=== PATIENT | female | born 2000 | race Caucasian/White ===

== ENCOUNTER 2022-02-07 18:28 | Emergency (ER) | payer MEDICAID, SELFPAY ==
[2022-02-07 18:30] VITALS: BP 130/88; PULSE 99; RESP 14; TEMP 37.1; O2SAT 96; BMI 28.6
--- NOTE | 2022-02-07 19:11 | EDS_ITS ---
HPI HPI - Psych History of Present Illness Chief Complaint: Suicidal Narrative Narrative: 21-year-old female college in [place] patient stating that she has feelings of suicidal ideation for about 6 months. She has been seen talking to somebody on the phone who is a therapist. She is on Zoloft which was increased 2 weeks ago. She states is not helping. She recently returned back to school campus and she states she does not have many friends. She states I do not have many people. She states that even when she goes home with her mom her mom suffers from depression as well and has no support structure. She initially stated that she had no plan for suicide but does admit to social work that she has been researching things on her phone on how to overdose with Zoloft and no sort of things. He states there is no history of attempts. PFSH PFSH Home Medications Prozac 40 mg DAILY 02/07/22 [History Last Taken Unknown] Vistaril 10 mg DAILY PRN PRN 02/07/22 [History Last Taken Unknown] drospirenone-ethinyl estradiol [SLIM (28)] 1 tab PO DAILY 02/07/22 [History Last Taken Unknown] spironolactone [Aldactone] 25 mg PO DAILY 02/07/22 [History Last Taken Unknown] Allergy/AdvReac Type Severity Reaction Status Date / Time No Known Allergies Allergy Verified 02/07/22 18:30 Social History Smoking Status: Never smoker ROS ROS ED Constitutional Constitutional ED: Denies chills or fever(s) Eyes Eyes: Denies blurry vision ENT ENT ED: Denies ear pain or sore throat Cardiovascular Cardiovascular: Denies chest pain, palpitations or racing heartbeat Respiratory/Chest Respiratory/Chest: Denies cough, dyspnea or sputum Gastrointestinal Gastrointestinal: Denies abdominal pain, constipation, diarrhea, nausea or vomiting Genitourinary Genitourinary ED: Denies dysuria, hematuria or urinary frequency Musculoskeletal Musculoskeletal: Denies arthralgias, myalgias or neck pain Integumentary Denies abscess, Abrasions or rash Neurologic Neurologic: Denies headache(s), paresthesias or weakness Psychiatric Psychiatric: Reports anxiety, depression, suicidal ideation and suicidal thoughts Endocrine Endocrinology: Denies polydipsia or polyuria EXAM Physical Exam Const Vital Signs: 02/07/22 18:30 02/07/22 19:40 02/07/22 22:54 Temperature 98.8 F 98.1 F Temperature Source Temporal Temporal Pulse Rate 99 78 Respiratory Rate 14 17 17 Blood Pressure 130/88 H Blood Pressure Mean 102 Pulse Ox 96 98 Oxygen Delivery Method Room Air Room Air 02/07/22 23:31 Temperature Temperature Source Pulse Rate Respiratory Rate 16 Blood Pressure Blood Pressure Mean Pulse Ox Oxygen Delivery Method General Appearance ED: Negative for pallor HEENT Reports normocephalic, head/scalp atraumatic and moist mucous membranes Eyes PERRL and EOMs intact bilaterally Neck no lymphadenopathy and supple Chest Wall inspection of chest normal and palpation of chest normal Resp normal respiratory effort and clear to auscultation bilaterally Auscultation: Negative for rales, rhonchi or wheezes Cardio regular rate and regular rhythm GI normal to inspection, nondistended, normoactive bowel sounds and non-distended Auscultation: normoactive bowel sounds Palpation: soft Narrative: Deferred Extremity normal to inspection General Extremety ED: Yes edema and tenderness General Extremity: edema Neuro oriented x3 and CN's II-XII intact bilaterally Sensorium / Orientation: alert Motor Exam: strength 5/5 throughout Psych speech normal Attitude: calm and No agitated Speech: normal speech Mood & Affect: flat affect Thought Process: No circumstantial and No confused Thought Content: suicidality and No homicidality Skin no rashes or lesions noted and no wounds General Skin Exam: Negative for jaundice or pallor MDM MDM MDM Narrative Medical decision making narrative: Patient initially assessed by social work here. This was handed off to crisis. CBC unremarkable. EtOH negative. Renal function electrolytes are normal. Urine drug screen negative. Covid testing negative. EKG on my interpretation shows normal sinus rhythm with ventricular rate of 79 bpm without sign ischemic change or dysrhythmia. Patient medically cleared to speak with crisis. Both I and social work believe the patient is appropriate for inpatient psychiatric care due to researching ways to overdose on her home medications. Patient also reports that if she is discharged home she would not be safe. Impression: 1. Suicidal ideation with plan Lab Data Attestation: I reviewed the patient's lab results. Labs: Laboratory Results - last 24 hr 02/07/22 02/07/22 02/07/22 20:00 20:35 20:35 WBC 11.2 H RBC 5.16 Hgb 14.3 Hct 45.5 MCV 88.2 MCH 27.7 MCHC 31.4 L RDW Std Deviation 42.6 RDW Coeff of Jeff 13.1 Plt Count 267 MPV 10.5 Immature Gran % (Auto) 0.400 Neut % (Auto) 65.1 Lymph % (Auto) 23.8 Gilliam % (Auto) 6.9 Eos % (Auto) 3.1 Baso % (Auto) 0.7 Absolute Neuts (auto) 7.3 Absolute Lymphs (auto) 2.65 Nucleated RBC % 0 Sodium Potassium Chloride Carbon Dioxide Anion Gap BUN Creatinine Estim Creat Clear Calc Est GFR (MDRD) Af Amer Est GFR (MDRD) Non-Af BUN/Creatinine Ratio Glucose Calcium Serum , Qual Urine Opiates Screen NEGATIVE Urine Methadone Screen NEGATIVE Ur Barbiturates Screen NEGATIVE Ur Phencyclidine Scrn NEGATIVE Ur Amphetamines Screen NEGATIVE MDMA (Ecstasy) Screen NEGATIVE U Benzodiazepines Scrn NEGATIVE Urine Cocaine Screen NEGATIVE U Cannabinoids Screen NEGATIVE Ur Drug Screen Comment Ethyl Alcohol < 3.0 02/07/22 02/07/22 23:24 23:24 WBC RBC Hgb Hct MCV MCH MCHC RDW Std Deviation RDW Coeff of Jeff Plt Count MPV Immature Gran % (Auto) Neut % (Auto) Lymph % (Auto) Gilliam % (Auto) Eos % (Auto) Baso % (Auto) Absolute Neuts (auto) Absolute Lymphs (auto) Nucleated RBC % Sodium 139 Potassium 3.9 Chloride 106 Carbon Dioxide 24.0 Anion Gap 9 BUN 12 Creatinine 0.73 Estim Creat Clear Calc 111.54 Est GFR (MDRD) Af Amer 132 Est GFR (MDRD) Non-Af 109 BUN/Creatinine Ratio 16.5 Glucose 87 Calcium 9.0 Serum , Qual NEGATIVE Urine Opiates Screen Urine Methadone Screen Ur Barbiturates Screen Ur Phencyclidine Scrn Ur Amphetamines Screen MDMA (Ecstasy) Screen U Benzodiazepines Scrn Urine Cocaine Screen U Cannabinoids Screen Ur Drug Screen Comment Ethyl Alcohol Discharge Plan Triage Chief Complaint: Suicidal ED Provider: Monty Prieto Dx/Rx/DC Orders Prescriptions: No Action Prozac 40 mg DAILY RF: 0 Vistaril 10 mg DAILY PRN PRN (Reason: Anxiety) RF: 0 spironolactone [Aldactone] 25 mg Tablet 25 mg PO DAILY RF: 0 drospirenone-ethinyl estradiol [SLIM (28)] 3-0.02 mg Tablet 1 tab PO DAILY RF: 0
[2022-02-07 19:40] VITALS: PULSE 78; RESP 17; TEMP 36.7; O2SAT 98
--- NOTE | 2022-02-07 20:19 | CM.ED ---
LEON Psychiatric Assessment Reason for Consult: Suicidal Informant: Patient and Jesi, therapist from [facility] Chief Complaint: Patient reports that today is ?the first day back from spring and I am already not doing well?. Patient said that she has not been doing well for the past 2-3 weeks. Patient said that she has ?felt numb and nothing is motivating or exciting?. Patient said that she is collaborating with a psychiatrist but stated she felt the meds were working ?but there is still stuff going on.? SW asked patient to elaborate what the ?stuff that is going on is? and patient said, ?I have always had problems socially... but in high school I was confident and had a purpose and now at [facility] I realize how different I am.? SW asked how patient is different and she said, ?everyone else is happy and having fun? and stated, ?they come for affluent families, but I only have a mom and she is not supportive?. Patient said that she has felt depressed for the last year but came to the hospital today as ?I just knew I needed help? I get irritated and agitated?. LEON spoke to Jesi from [facility]. Jesi said that patient called the National Suicide Hotline ?several times? today. Jesi said that patient stated that she is more suicidal than previous days but was very ?vague?. Patient said that she is scared she would hurt herself and could do something impulsively. Jesi said that patient is scared if her mom finds out she needs inpatient psych and that her mom could be so upset that she might ?take her own life?. Marital /Social History: Single Identified Gender/Sexual Orientation: Female/Bisexual- She/Her Pronouns Living Situation: Patient resides in [facility]. Patient said that she has a roommate but ?we don?t talk?. Support/Resources: Patient reports she has a twin brother who also attends the [facility], and he is a support. Patient said that her mom is ?tameka a support but not about mental health... she would get angry or threaten me with outpatient. She would be worried, but it comes out as anger?. History: None Education and Employment History: Patient graduated [employer] in [place]. No learning issues. 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. Patient said that her grades are ?pretty good? and that she has ?decent grades but I am doing less work on them? and then stated that it is hard to focus and concentrate. Mental Health Treatment: Patient reports she has a psychiatrist through the [facility] who she has seen two times on Telehealth. Patient has seen the psychiatrist twice monthly and her next appointment is in a couple of months. Patient reports she is on Vistaril (PRN) and Prozac. Patient sees a therapist through teletherapy services through [facility]. Patient has tried to see her therapist weekly by but has not for the last 2-3 weeks. Patient said that she is diagnosed with generalized anxiety disorder. Patient said that her therapist and her PCP feel that she has more ?social anxiety and depression?, but it is not documented. Patient reports in 2017 she attended an PHP/IOP program called the [facility] in [place] for Eating disorder. 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 No inpatient psych hospitalizations. Patient previously was seeing a therapist at [facility] [place]. Patient met with Jesi from the [facility] today. Triggers/Stressors: Patient said that in the past 3-4 months she has talked to people romantically, but they all broke up with her so that adds stress. Patient said that initially when she came back from, winter break she noted that she was isolating herself a feeling ?really angry and frustrated?. Patient said that loud noises ?make me sad?. Patient said that another trigger is ?not having too much support. I have friends but not close friends?. Patient said that she wanted to get close to her aunt, who lives next door to patient?s mom, but did not reach out to her aunt as she thought her mom may get mad. Coping Skills: Patient said that her coping skills are ?trying not to think about it ?and ?distracting myself?. Patient said that in the past she had done journaling, reading and listening to music but ?I don?t do that as much?. Abuse Issues: Patient was asked about abuse and patient said, ?I don?t know?. Patient said, ?I don?t feel safe at home?. Patient said that her mom has not hit her ?but I don?t feel safe... my mom gets angry and shouts and leaves the house for hours?. Patient said that there has not been any CPS involvement. Substance abuse Issues: Denied Risk to Self and Others: Suicidal: Thoughts: Patient reports she has suicidal thought and they have gotten worse ?the last couple of weeks?. Patient said that the thoughts were ?worse today then yesterday?. Patient said that she is also ?tired? and when asked about that patient said that she is tired ?of the ways things are ... I never felt I had people?. Patient reports she feels hopeless and helpless. SW asked patient if she has anything she looks forward to in the future and patient said, ?I look forward to grad school and having a family and the future but getting through this now?? the next couple of weeks is hard?. Plans: Patient initially denied a plan. However, when asked if she researched ways to harm herself patient said that she had researched methods online today. Patient said that she looked up how to harm herself with pills and then voiced she had looked up how to harm herself with her Prozac. Patient said ?I want a way to have this all stop? I need a drastic change?. Patient said that when she researched online how to complete suicide using pills it referred her to the suicide hotline. Attempts: None Homicidal: Thoughts: Denied Plans: Denied Attempts: Denied Violence: To Self: Denied To Others: Denied Objects: Denied Orientation: x3 Memory: Intact Appearance/General Behavior: Clean hygiene. Appears to be anxious with continual movement throughout the assessment. Wearing hospital Gown. Poor eye contact Mood/Affect: Depressed mood and affect Communication Pattern: Responds to Questions Thought Process: Logical and Linear General Intellectual Functioning: Judgment: Fair Insight: Fair LEON met with MD Prieto who agrees with plan for psych hospitalization for patient. Plan: Inpatient Psych Hospitalization Lorelei LANGLEY
[2022-02-07 20:45] LABS: Absolute Lymphocyte Count 2.65 X10^3/uL (0.83-4.51); Absolute Neutrophil Count 7.3 X10^3/uL (2.0-7.7); Basophil# 0.08 X10^3/uL; Basophil% 0.7 % (0-1); Eosinophil# 0.35 X10^3/uL; Eosinophils% 3.1 % (0-5); Hematocrit 45.5 % (37-47); Hemoglobin 14.3 g/dL (12.0-15.0); Lymphocyte # 2.65 X10^3/ul (0.83-4.51); Lymphocyte % 23.8 % (19-41); Mean Corp Hgb Conc 31.4 g/dL (32-36); Mean Corpuscular Hgb 27.7 pg (27.0-32.0); Mean Corpuscular Volume 88.2 fL (81-99); Mean Platelet Vol. 10.5 fl (6.2-12.0); Monocyte# 0.77 X10^3/uL; Monocyte% 6.9 % (0-10); NRBC Flagged by Analyzer 0 % (0-5); Neutrophil # 7.26 X10^3/uL (2.7-7.7); Neutrophil % 65.1 % (47-70); Platelet Count 267 K/mm3 (150-450); RBC Distribution Width CV 13.1 % (11.6-14.6); RBC Distribution Width SD 42.6 fl (35.1-43.9); Red Blood Count 5.16 M/mm3 (4.2-5.4); White Blood Count 11.2 K/mm3 (4.4-11.0)
--- NOTE | 2022-02-07 20:48 | ED.RN ---
unsuccessful attempt x4 to obtain blood on patient by 2 RNs. Lab called at this time to come try to obtain blood work.
[2022-02-07 20:50] LABS: POSITIVE COUNT NO; POSITIVE DIFFERENTIAL NO; POSITIVE MORPHOLOGY NO
--- NOTE | 2022-02-07 20:57 | CM.ED ---
LEON Note LEON called Jesi from [facility] and updated her that plan for patient is inpatient psych. LEON called Rosalina at Crisis and gave handoff as this freelance writer is leaving. Rosalina was advised that Jesi from the [facility] wants to be updated about where patient is placed for psych treatment. LEON faxed this freelance writer and 's report to crisis Lorelei LANGLEY
[2022-02-07 21:00] LABS: Amphetamine Urine VISTA NEGATIVE (<1000 ng/mL); Barbiturate Urine VISTA NEGATIVE (< 200 ng/mL); Benzodiazepine Urine VISTA NEGATIVE (< 200 ng/mL); Cocaine Urine VISTA NEGATIVE (< 300 ng/mL); Ecstacy Urine VISTA NEGATIVE (< 500 ng/mL); Methadone Urine VISTA NEGATIVE (< 300 ng/mL); PCP Urine VISTA NEGATIVE (< 25 ng/mL); THC Urine VISTA NEGATIVE (< 50 ng/mL); Vista UDS pH Range 5
[2022-02-07 21:01] LABS: Alcohol, Blood (Medical)-Serum < 3.0 mg/dL
--- NOTE | 2022-02-07 22:25 | EKG12_ITS ---
Test Reason : SUICIDAL Blood Pressure : / mmHG Vent. Rate : 079 BPM Atrial Rate : 079 BPM P-R Int : 140 ms QRS Dur : 084 ms QT Int : 404 ms P-R-T Axes : 024 074 048 degrees QTc Int : 463 ms Normal sinus rhythm Normal ECG Confirmed by MIKEL GOODE, FREDIS ([id number]), editor producer SIRIA CORONADO ([id number]) on 02/08/2022 10:32:32 AM Referred By: FRANCISCO Confirmed By:FREDIS MORIN MD
[2022-02-07 22:54] VITALS: RESP 17
--- NOTE | 2022-02-07 23:00 | ED.RN ---
Lab called again asking if someone could come up and try to obtain blood from patient. instrument tech states they forgot to tell me Lab states they will come and attempt.
[2022-02-07 23:31] VITALS: RESP 16
[2022-02-07 23:54] LABS: Internal QC Validated? YES +Cl - CLEAR BKGD; Pregnancy, Serum, hCG Quali. NEGATIVE Negative
[2022-02-07 23:56] LABS: Anion Gap 9 (5-15); BUN 12 mg/dL (7-18); BUN/Creat Ratio 16.5 RATIO (10-20); Chloride 106 mmol/L (98-107); Creatinine, Serum 0.73 mg/dL (0.55-1.02); EST Glomerular Filtration Rate 109 mL/min (>60); Est Glom Filt Rate - Afr Amer 132 mL/min (>60); Estimated Creatinine Clearance 111.54 ml/min; Glucose 87 mg/dL (74-106); Potassium 3.9 mmol/L (3.5-5.1); Sodium Level 139 mmol/L (136-145)
[2022-02-08 01:00] VITALS: BP 124/74; PULSE 78; RESP 17; TEMP 36.6; O2SAT 99
[2022-02-08 04:51] VITALS: BP 124/70; PULSE 78; RESP 18; TEMP 36.7; O2SAT 99
--- NOTE | 2022-02-08 11:48 | CM.ED ---
Social Work Telephone call from Jesi at the [facility] inquired as to what hospital patient was placed at. This geriatric social work professor updated Jesi that patient was placed to [place]. Antoine WALTON, MARYAM
== END 2022-02-08 04:57 ==
PROVIDERS: Emergency Provider Student in an Organized Health Care Education/Training Program; Visit Provider Student in an Organized Health Care Education/Training Program
DX: F32.A Depression, unspecified (principal); R45.851 Suicidal ideations; F41.9 Anxiety disorder, unspecified; Z20.822 Contact with and (suspected) exposure to COVID-19; Z79.899 Other long term (current) drug therapy
CPT/HCPCS: 36415; 80048; 80307; 82077; 84703; 85025; 87811; 93005; 99285